=== PATIENT | male | born 1985 | race African-American/Black ===

== ENCOUNTER 2021-04-27 20:00 | Emergency (ER) | payer OTHER ==
[2021-04-27 20:54] VITALS: BP 152/86; PULSE 57; TEMP 97.9; BMI 34.9
[2021-04-29 18:08] LABS: SARS-CoV-2 NAA Not Detected (Not Detected)
== END 2021-04-27 20:49 | disposition home or self-care (01) ==
LOC: FER 20:00
DX: Z20.822 Contact with and (suspected) exposure to COVID-19 (principal)
CPT/HCPCS: 99283-25; C9803; U0003; U0005